=== PATIENT | female | born 1985 | race Asian ===

== ENCOUNTER 2017-11-19 23:15 | Emergency (ER) | payer SELFPAY ==
[~2017-11-19] VITALS: Ht 157.5 cm; Wt 94.3 kg
[2017-11-19 23:21] VITALS: Ht 157.5 cm; Wt 94.3 kg
[2017-11-20 03:25] VITALS: BP 121/68
== END 2017-11-20 03:38 | disposition home or self-care (01) ==
LOC: ED 23:15
DX: J02.9 Acute pharyngitis, unspecified (principal)
CPT/HCPCS: J1100; J1885